=== PATIENT | female | born 1945 | race Caucasian/White ===

== ENCOUNTER 2019-08-26 12:52 | Inpatient (IN) | payer MEDICARE, SELFPAY ==
--- NOTE | ~2019-08-26 | CT_ITS ---
EXAMINATION: CT abdomen pelvis w con DATE: 08/29/2019 12:43 INDICATION: Pancytopenia. Elevated liver function tests. TECHNIQUE: Computed tomography (CT) of the abdomen and pelvis was performed with 100 mL Omnipaque-350 intravenous contrast. Automated exposure control and iterative reconstruction technique were employe d. The dose-length product was 610.65 mGy-cm. COMPARISON: None FINDINGS: Mild atelectasis at the bilateral posterior sulci, right greater than left. Small calcified nodule at the left posterior sulcus consistent with old granulomatous disease. Heart size is normal. Aortic va lve calcification. No pericardial or pleural effusion. Gallbladder is not visualized and likely surgi yahir absent. Liver is normal. No intra or extrahepatic biliary ductal dilation. Spleen, pancreas, bi lateral adrenal glands and right kidney are normal. Status post left nephrectomy with multiple surgic al clips in the left nephrectomy bed. The appendix is not visualized. No pericecal inflammatory ho e to suggest acute appendicitis. Couple surgical clips near the hepatic flexure of the colon. There i s mild to moderate colonic diverticulosis with a sigmoid predominance. There is no adjacent inflammat ory change to suggest diverticulitis. No bowel obstruction. Bladder is normal. The uterus is not iden tified and has likely been surgically resected. Bilateral adnexa are unremarkable. No free intraperit sparks gas or fluid. No pathologically enlarged abdominal or pelvic lymphadenopathy. There is calcifie d atherosclerosis of the aorta and bilateral iliac arteries. Mild lumbar dextrocurvature with moderat e spondylosis. IMPRESSION: 1. Normal liver with no intra-axial hepatic biliary ductal dilation. 2. Postoperative change of prior cholecystectomy, left nephrectomy, hysterectomy and likely appendect erich. 3. Diverticulosis. Reviewed, dictated and finalized at location A. IMPRESSION: 1. Normal liver with no intra-axial hepatic biliary ductal dilation. 2. Postoperative change of prior cholecystectomy, left nephrectomy, hysterectom y and likely appendectomy. 3. Diverticulosis.
[2019-08-26 12:59] VITALS: BP 142/89; PULSE 74; RESP 19; TEMP 36.4; O2SAT 98
--- NOTE | 2019-08-26 13:16 | PC.NURSE ---
pt reports that she cannot taste food or fluids
[2019-08-26 14:25] LABS: Basophils Percent Auto 1.2 % (0.2-1.2); Eosinophils Percent Auto 1.6 % (0-4.4); Hematocrit 28.2 % (37.0-47.0); Hemoglobin 9.5 g/dL (12.0-15.0); Lymphocytes Absolute Auto 1.33 K/mm3 (0.9-3.2); Lymphocytes Percent Auto 52.8 % (18.3-44.2); Mean Corpuscular HGB Conc 33.7 g/dl (32-36); Mean Corpuscular Hemoglobin 33.2 pg (26-34); Mean Corpuscular Volume 98.6 fl (80-100); Mean Platelet Volume 10.1 fl (7.4-10.4); Monocytes Absolute Auto 0.2 K/mm3 (0.1-0.6); Monocytes Percent Auto 7.1 % (2.6-8.5); Neutrophils Absolute Auto 0.9 K/mm3 (1.3-6.7); Neutrophils Percent Auto 37.3 % (45.5-73.1); Platelet Count Result 133 k/mm3 (150-375); Red Blood Count 2.86 M/mm3 (4.2-5.4); Red Cell Distribution Width 14.6 % (11.5-14.5); White Blood Count 2.5 K/mm3 (4.5-10.0)
[2019-08-26 14:36] LABS: Blood Urea Nitrogen 20 mg/dL (7-17); Calcium 9.4 mg/dL (8.4-10.2); Carbon Dioxide 28 mmol/L (22-30); Chloride 102 mmol/L (98-107); Estimated Glomerular Filt Rate 24; Glucose 80 mg/dL (65-105); Potassium 4.1 mmol/L (3.4-5.0); Sodium 137 mmol/L (137-145)
[2019-08-26 14:42] VITALS: BP 148/71; PULSE 50; RESP 16; O2SAT 98
[2019-08-26 14:48] LABS: Creatine Kinase 2941 U/L (30-135)
[2019-08-26 14:53] LABS: Add Urine Microscopic? YES; Appearance Urine Clear (Clear); Bilirubin Urine Negative (Negative); Blood Urine Negative (Negative); Color Urine Yellow (Yellow); Glucose Urine UA Negative (Negative); Ketones Urine Trace mg/dL (Negative); Leukocyte Esterase Ur Trace LEU/UL (Negative); Mucus Urine Rare /lpf; Nitrate Urine Negative (Negative); Protein Urine 1+ mg/dL (Negative); RBC Urine 0-2 /hpf (0-2); Specific Grav Ur 1.027 (1.001-1.035); Squamous Epithelial Cell Urine Few /hpf (Few)
--- NOTE | 2019-08-26 14:53 | ED.RECABL ---
HPI - Recheck/Abnormal Lab/Rx General Chief Complaint: Recheck/Abnormal Lab/Rx <Tamia Del Angel PA-C - Last Filed: 08/26/19 17:33> Stated Complaint: problems with my kidney or thyroid <Tamia Del Angel PA-C - Last Filed: 08/26/19 17:33> Time Seen by Provider: 08/26/19 14:23 <Tamia Del Angel PA-C - Last Filed: 08/26/19 17:33> Source: patient <WILL Stewart Last Filed: 08/26/19 17:33> Mode of arrival: ambulatory <WILL Stewart Last Filed: 08/26/19 17:33> Limitations: no limitations <WILL Stewart Last Filed: 08/26/19 17:33> History of Present Illness HPI narrative: This is a 73 year old female that presents to the ER for thyroid problems . Reports she recently had labs done by her primary care doctor and was told to come to the emergency department for thyroid issues. Currently has no complaints. Denies fever, chest pain, shortness of breath, vomiting, or dysuria. <WILL Stewart Last Filed: 08/26/19 17:33> Related Data Home Medications: Home Medications Medication Instructions Recorded Confirmed atorvastatin 40 mg PO HS 08/26/19 ergocalciferol (vitamin D2) WEEKLY 08/26/19 [Vitamin D2] levothyroxine [Euthyrox] DAILY 08/26/19 <WILL Stewart Last Filed: 08/26/19 17:33> Allergies/Adverse Reactions: Allergies Allergy/AdvReac Type Severity Reaction Status Date / Time No Known Allergies Allergy Verified 08/26/19 13:14 <WILL Stewart Last Filed: 08/26/19 17:33> Review of Systems Review of Systems: Narrative: CONSTITUTIONAL: Denies fever CARDIOVASCULAR: Denies chest pain RESPIRATORY: Denies dyspnea. GASTROINTESTINAL: Denies abdominal pain, nausea, vomiting GENITOURINARY: Denies dysuria or hematuria. <Tamia Del Angel PA-C - Last Filed: 08/26/19 17:33> All systems reviewed & are unremarkable except as noted in HPI and below <Tamia Del Angel PA-C - Last Filed: 08/26/19 17:33> [facility] Past Medical History Medical History: Medical History (Updated 08/26/19 @ 17:33 by Tamia Del Angel PA-C) History of hyperlipidemia History of hypothyroidism <Tamia Del Angel PA-C - Last Filed: 08/26/19 17:33> Social History Social History: Social History Smoking status: Former smoker Smoking end date: 02/14/08 Alcohol intake: never <Tamia Del Angel PA-C - Last Filed: 08/26/19 17:33> Exam Narrative: Exam Narrative: GENERAL: Well-appearing, well-nourished, and in no acute distress. HEAD: Normocephalic, atraumatic. EYES: EOMI. CHEST: Clear to auscultation. No respiratory distress. No wheezes rales or rhonchi HEART: Regular rate and rhythm. No murmur heard. Normal peripheral pulses. ABDOMEN: Soft, nontender, nondistended, normal active bowel sounds. EXTREMITIES: Normal range of motion. No edema. SKIN: Warm, dry, no rash. NEURO: No focal deficits. Alert and oriented x3. PSYCH: Normal mood and affect <Tamia Del Angel PA-C - Last Filed: 08/26/19 17:33> Course WINDOWS SERVER ARCHITECT/PA Physician Supervision For this patient encounter, I reviewed the WINDOWS SERVER ARCHITECT or PA documentation, treatment plan, and medical decision making; and I had [id number] time with this patient. GENERAL: Well-appearing, well-nourished, and in no acute distress. HEAD: Normocephalic, atraumatic. CHEST: Clear to auscultation. No respiratory distress. HEART: Regular rate and rhythm. Normal peripheral pulses. ABDOMEN: Soft, nontender, nondistended. EXTREMITIES: Normal range of motion. No edema. NEURO: Alert and oriented x3. PSYCH: Normal mood and affect. Patient is a pleasant lady is in rhabdomyolysis with renal failure. Will admit to hospital service with hydration. <Mike Rodriguez MD - Last Filed: 08/26/19 19:37> Consultations Consultation #1: Spoke with hospitalist about patient and work-up who accepts admission <Tamia Del Angel PA-C - Last Filed: 08/26/19 17:33> Date: 08/26/19 <Tamia Del Angel PA-C
[2019-08-26] MEDS: SODIUM CHLORIDE 0.9% IV 1,000 ML 999 ML IV CONT (15:35)
[2019-08-26 16:05] LABS: Free T4 Free Thyroxine Reflex 0.34 ng/dL (0.78-2.19)
[2019-08-26 17:34] VITALS: BP 152/92; PULSE 53; RESP 17; O2SAT 99
[2019-08-26 18:51] VITALS: BP 142/78; PULSE 52; RESP 17; O2SAT 97
--- NOTE | 2019-08-26 20:00 | ADMGEN ---
This patient, Octavia Thakkar, was admitted to 3 Medical [address] 345-. Patient/family oriented to hospital policies and general routines including ID bracelet, bed and alarms, visiting hours, pain management, procedures, bathroom and other care routines, personal items, smoking policy, room service/diet, and visiting hours. Valuables list has been completed. Information on how to activate the Rapid Response Team has been discussed. Patient/Family are encouraged to report perceived risks to care and to ask questions if they do not understand what they are told or what they should do.
[2019-08-26 20:15] VITALS: BP 153/78; PULSE 59; RESP 16; TEMP 36.4; O2SAT 97
[2019-08-26 20:16] VITALS: BMI 32.1
[2019-08-26] MEDS: SODIUM CHLORIDE 0.9% IV 1,000 ML 125 ML IV CONT (20:27)
[2019-08-26 21:20] VITALS: PULSE 84; RESP 18; TEMP 36.6; O2SAT 97
--- NOTE | 2019-08-27 03:24 | PM.IMHP ---
H&P: HPI History of Present Illness Chief complaint: MICK,rhabdomyolysis Narrative: Date and time of patient contact: 08/27/2019 Octavia Thakkar is a 73 year old female with a past medical history of chronic kidney disease, left nephrectomy due to renal cell carcinoma, and hypothyroidism who presented to the ER after outpatient labs demonstrated acute kidney injury. The patient reported that she was feeling weak and fatigued. She thought she felt some swelling in her neck. She indicates the upper part of her neck and under her jaw. She stated that this area was tender. She was also having some hoarse voice. These were all symptoms that she had previously when she was 1st diagnosed with hypothyroidism. She had been out of her thyroid medications for 6 months. She had evidently room moved back to the area in the last year so. She wanted to get reestablished with Dr. Do Fletcher. However she was having difficulty with her insurance at the time. She had already run out of her thyroid medications and could not get them refilled. By the time she got her insurance straightened out COVID-19 occurred and she was unable to get into the doctor's office. She had went without her thyroid medications for 6 months. She had a follow-up appointment with her property maintenance supervisor this past week and her property maintenance supervisor refilled her thyroid medications. Patient also reports that she has been having some episodes of lightheadedness. She has not had any nausea or vomiting. She has chronic low appetite. She thinks that her weight has been stable. She has noticed some mild shiv ankle edema. She denies any chest pain or shortness of breath. She has not had any hair loss or skin changes. She has chronic dry skin. She has not been having any constipation. She denies any dysuria or changes in urinary frequency. She reports generalized fatigue but has not noticed any muscle pain or cramping. She has not had any falls or prolonged inactivity. The patient reports that she is a ?gypsy. And does not like to live in 1 place very long. It sounds as if she spends a great deal a time moving back and forth between this area and [place]. Review of Systems Review of Systems: Narrative: 12 systems were reviewed with pertinent positives and negatives per HPI. Except as documented in the HPI, all other systems were reviewed and are negative. [facility] Past Medical History Medical History (Updated 08/27/19 @ 08:24 by Kiana Ramachandran DO) Heart murmur She reports a heart murmur since childhood. Hyperlipidemia Hypothyroidism Renal cell carcinoma Status post left nephrectomy Stage III chronic kidney disease With baseline creatinine around 1.5 Surgical History Surgical History (Updated 08/27/19 @ 03:28 by Kiana Ramachandran DO) History of appendectomy History of hysterectomy History of left nephrectomy 2010 Hx of cholecystectomy Family History Family History Father Acute myocardial infarction Daughter Chronic obstructive pulmonary disease Sibling Acute myocardial infarction Social History Social History (Updated 08/27/19 @ 03:32 by Kiana Ramachandran DO) Social History: Code status: Full code per EMR Smoking packs per day: 0.5 Smoking cigarettes per day: 10.0 Years smoked: 50 Smoking pack-years: 25.00 Smoking status: Former smoker Tobacco type: cigarettes Smoking end date: 02/14/08 Alcohol intake: former Substance use: never Gender identity (if verbalized by the patient): Female Spiritual care concerns: No Meds Home Medications and Allergies Home Medications Medication Instructions Recorded Confirmed Type atorvastatin 40 mg PO HS 08/26/19 08/26/19 History ergocalciferol (vitamin D2) 1,250 mcg PO WEEKLY 08/26/19 08/26/19 History [Vitamin D2] levothyroxine [Euthyrox] 75 mcg PO DAILY 08/26/19 08/26/19 History Allergies Allergy/AdvReac Type
[2019-08-27] MEDS: SODIUM CHLORIDE 0.9% IV 1,000 ML 125 ML IV CONT ×3 (04:26→21:58)
[2019-08-27 05:23] VITALS: BP 153/82; PULSE 55; RESP 16; TEMP 36.7; O2SAT 97
[2019-08-27] MEDS: LEVOTHYROXINE SODIUM 75 MCG TABLET PO (05:31)
[2019-08-27 05:59] LABS: Hematocrit 28.4 % (37.0-47.0); Hemoglobin 9.5 g/dL (12.0-15.0); Mean Corpuscular HGB Conc 33.5 g/dl (32-36); Mean Corpuscular Hemoglobin 33.1 pg (26-34); Platelet Count Result 120 k/mm3 (150-375); Red Blood Count 2.87 M/mm3 (4.2-5.4); Red Cell Distribution Width 14.6 % (11.5-14.5); White Blood Count 2.9 K/mm3 (4.5-10.0)
[2019-08-27 06:11] LABS: Blood Urea Nitrogen 16 mg/dL (7-17); Calcium 8.3 mg/dL (8.4-10.2); Carbon Dioxide 28 mmol/L (22-30); Chloride 107 mmol/L (98-107); Estimated CRCL calculation 27 ml/min; Estimated Glomerular Filt Rate 32; Glucose 75 mg/dL (65-105); Potassium 3.7 mmol/L (3.4-5.0); Sodium 139 mmol/L (137-145)
[2019-08-27 06:21] LABS: Creatine Kinase 2240 U/L (30-135)
[2019-08-27 08:00] VITALS: PULSE 55; RESP 16; O2SAT 97
[2019-08-27 08:36] LABS: Immature Reticulocyte Fraction 13.1 % (3.0-15.9); Reticulocyte Hemoglobin Conten 38.2 pg (28.2-35.7); Reticulocyte Percent 0.93 % (0.7-4.3); Reticulocytes Absolute 0.03 B/L (32.2-175.7)
[2019-08-27 09:04] LABS: Transferrin 212 mg/dL (206-381)
[2019-08-27 09:22] LABS: Iron 123 ug/dL (37-170)
[2019-08-27 09:31] LABS: Percent Iron Saturation 43 % (20-50)
[2019-08-27 09:58] LABS: Folic Acid 11.8 ng/mL (2.76->20)
[2019-08-27 14:22] VITALS: BP 142/74; PULSE 67; RESP 18; TEMP 37.4; O2SAT 97
--- NOTE | 2019-08-27 15:01 | PM.IMPN ---
Progress Note: A&P Assessment and Plan (1) MICK (acute kidney injury): Code(s): N17.9 - Acute kidney failure, unspecified Status: Acute Assessment and Plan: Cr was 2.00 and BUN 20. CK was elevated at 2941. Her MICK is likely secondary to mild rhabdomyolysis. Cr has improved to 1.6 and BUN is 16. Plan to continue IV fluid hydration. Avoid nephrotoxic agents and renally dose medications. Continue to monitor renal function. (2) Rhabdomyolysis: Qualifiers: Rhabdomyolysis type: non-traumatic Qualified Code(s): M62.82 - Rhabdomyolysis Code(s): M62.82 - Rhabdomyolysis Status: Acute Assessment and Plan: CK was elevated at 2941 at presentation. Repeat CK today is 2240. Discontinue atorvastatin. Continue IV fluids. Continue to monitor CK. (3) Hypothyroidism: Code(s): E03.9 - Hypothyroidism, unspecified Status: Acute Assessment and Plan: She reports that she has not taken her levothyroxine for 6 months as she did not have any refills. TSH was elevated at 11.4 and fT4 low at 0.34. Plan to resume home levothyroxine at 75 mcg (her prior home dose) and repeat TSH in 4-6 weeks outpatient with further levothyroxine adjusments per her PCP. (4) Pancytopenia: Code(s): D61.818 - Other pancytopenia Status: Acute Assessment and Plan: WBC was 2, 900, Hb 9.5, Hct 28.2, and platelets 133. She has a hx of renal cell carcinoma s/p left nephrectomy. Absolute reticulocyte count is low at 0.03. Iron studies reveal sufficient iron levels. Vitamin B12 and folate are sufficient. I have reached out to Dr. Canada who will see the patient in consultation. Further recommendations are greatly appreciated. Subjective Date/time seen: 08/27/19 15:01 Interval history: Mrs. Thakkar is a 73 y.o. female who is seen and examined at bedside in follow-up for MICK and rhabdomyolysis. She reports that she is feeling much better today and she is requesting to go home. She reports that her weakness and fatigue have resolved. She is tolerating PO intake well. She denies recent weight change. She denies subjective fever, chills, and night sweats. She denies nausea and vomiting. Her last bowel movement was yesterday. She has no urinary complaints. She denies chest pain and dyspnea. Review of Systems Review of Systems: All systems reviewed & are unremarkable except as noted in HPI and below Exam Narrative: Exam Narrative: General: Pleasant, well-developed, well-nourished 73 y.o. female who appears her stated age lying supine in bed resting. She is in no acute distress. HEENT: Normocephalic and atraumatic. Conjunctivae and lids normal. EOMI. Mucous membranes moist. Dentures present. Posterior pharynx without erythema or exudate. Neck: Supple without lymphadenopathy or masses. Thyromegaly present. Cardiac: Regular rate and rhythm. S1 and S2 normal. 3/6 murmur appreciated at the LSB. Lungs: Effort normal. Lungs clear to auscultation bilaterally. Abdomen: Scars at site of prior appendectomy, cholecystectomy, and left nephrectomy. Bowel sounds normoactive. Abdomen soft, non-tender, and non-distended. Extremities: Scant lower extremity edema. Kelly sign negative. 2+ DP and PT. Neurological: Alert. Exam non-focal to casual conversation. Speech is clear. Skin: Warm and dry. Psychiatric: Judgment and insight intact. Mood pleasant and affect normal. Objective Data Vital Signs Vital Signs: Vital Signs - 24 hr 08/26/19 17:34 08/26/19 18:51 08/26/19 20:15 Temperature 97.6 F Pulse Rate 53 L 52 L 59 L Respiratory Rate 17 17 16 Blood Pressure 152/92 H 142/78 H 153/78 H Pulse Oximetry 99 97 97 08/26/19 21:20 08/27/19 05:23 08/27/19 08:00 Temperature 97.9 F 98.1 F Pulse Rate 84 55 L 55 L Respiratory Rate 18 16 16 Blood Pressure 153/82 H Pulse Oximetry 97 97 97 08/27/19 14:22 Temperature 99.4 F Pulse Rate 67 Respiratory Rate 18 Blood Pressure 142/74 H Pulse Ox
[2019-08-27 22:00] VITALS: BP 158/74; PULSE 58; RESP 14; TEMP 36.9; O2SAT 98
[2019-08-28 05:04] VITALS: BP 153/84; PULSE 61; RESP 14; TEMP 36.3; O2SAT 97
[2019-08-28] MEDS: SODIUM CHLORIDE 0.9% IV 1,000 ML 125 ML IV CONT (05:51)
[2019-08-28] MEDS: LEVOTHYROXINE SODIUM 75 MCG TABLET PO (05:51)
[2019-08-28 06:06] LABS: Basophils Percent Auto 1.3 % (0.2-1.2); Eosinophils Absolute Auto 0.1 K/mm3 (0-0.3); Eosinophils Percent Auto 2.7 % (0-4.4); Hematocrit 29.7 % (37.0-47.0); Hemoglobin 9.8 g/dL (12.0-15.0); Immature Granulocyte Absolute 0.01 K/mm3 (0.00-0.031); Immature Granulocyte Percent A 0.3 % (0-0.5); Immature Platelet Fraction Pct 3.5 % (0.9-11.2); Lymphocytes Percent Auto 56.5 % (18.3-44.2); Mean Corpuscular Hemoglobin 32.8 pg (26-34); Mean Corpuscular Volume 99.3 fl (80-100); Monocytes Absolute Auto 0.2 K/mm3 (0.1-0.6); Neutrophils Absolute Auto 0.9 K/mm3 (1.3-6.7); Neutrophils Percent Auto 31.2 % (45.5-73.1); Platelet Count Result 137 k/mm3 (150-375); Red Blood Count 2.99 M/mm3 (4.2-5.4); Red Cell Distribution Width 14.8 % (11.5-14.5)
[2019-08-28 06:20] LABS: Alanine Aminotransferase 67 U/L (4-35); Albumin Level 3.9 g/dL (3.5-5.1); Alkaline Phosphatase 56 U/L (38-126); Aspartate Amino Transferase 92 U/L (14-36); Bilirubin,Total 0.4 mg/dL (0.2-1.3); Blood Urea Nitrogen 13 mg/dL (7-17); Calcium 8.6 mg/dL (8.4-10.2); Carbon Dioxide 29 mmol/L (22-30); Chloride 108 mmol/L (98-107); Creatine Kinase 1488 U/L (30-135); Estimated CRCL calculation 31 ml/min; Estimated Glomerular Filt Rate 37; Glucose 76 mg/dL (65-105); Magnesium 2.1 mg/dL (1.6-2.3); Potassium 4.1 mmol/L (3.4-5.0); Sodium 140 mmol/L (137-145)
[2019-08-28 14:00] VITALS: BP 145/80; PULSE 67; RESP 18; TEMP 36.8; O2SAT 99
--- NOTE | 2019-08-28 15:05 | PM.IMPN ---
Progress Note: A&P Assessment and Plan (1) MICK (acute kidney injury): Code(s): N17.9 - Acute kidney failure, unspecified Status: Acute Assessment and Plan: Cr was 2.00, BUN 20, and CK elevated at 2941 at admission. Her MICK is likely secondary to mild rhabdomyolysis. Cr has improved to 1.4 and BUN is 13. I suspect she is close to baseline as chart review reports that her baseline Cr is usually close to 1.5. Will continue very gentle IV fluids with reduced rate. Avoid nephrotoxic agents and renally dose medications. Continue to monitor renal function. (2) Rhabdomyolysis: Qualifiers: Rhabdomyolysis type: non-traumatic Qualified Code(s): M62.82 - Rhabdomyolysis Code(s): M62.82 - Rhabdomyolysis Status: Acute Assessment and Plan: CK was elevated at 2941 at presentation. CK is trending down at 1488. Discontinue atorvastatin. Continue gentle IV fluids. Continue to monitor CK. (3) Hypothyroidism: Code(s): E03.9 - Hypothyroidism, unspecified Status: Acute Assessment and Plan: She reports that she has not taken her levothyroxine for 6 months as she did not have any refills. TSH was elevated at 11.4 and fT4 low at 0.34. Plan to resume home levothyroxine at 75 mcg (her prior home dose) and repeat TSH in 4-6 weeks outpatient with further levothyroxine adjusments per her PCP. (4) Pancytopenia: Code(s): D61.818 - Other pancytopenia Status: Acute Assessment and Plan: WBC was 2, 900, Hb 9.5, Hct 28.2, and platelets 133. She has a hx of renal cell carcinoma s/p left nephrectomy. Absolute reticulocyte count is low at 0.03. Iron studies reveal sufficient iron levels. Vitamin B12 and folate are sufficient. I have reached out to Dr. Canada who saw the patient in consultation. Plan for CT abd/pelvis to check for spleen and liver morphology due to LFT elevation. If CT is unremarkable, Dr. Canada recommends bone marrow aspiration and biopsy outpatient. Subjective Date/time seen: 08/28/19 15:05 Interval history: Mrs. Thakkar is a 73 y.o. female who is seen and examined at bedside in follow-up for MICK and rhabdomyolysis. No acute events were reported overnight. She reports that she has been up walking in the room without pain or weakness. She is tolerating PO intake well. Her fatigue has resolved. She denies nausea, vomiting, and abdominal pain. She has no urinary complaints. She denies chest pain and dyspnea. She denies calf tenderness. Review of Systems Review of Systems: All systems reviewed & are unremarkable except as noted in HPI and below Exam Narrative: Exam Narrative: General: Pleasant, well-developed, well-nourished 73 y.o. female lying supine in bed resting and in no acute distress. HEENT: Normocephalic and atraumatic. Conjunctivae and lids normal. EOMI. Mucous membranes moist. Dentures present. Posterior pharynx without erythema or exudate. Neck: Supple without lymphadenopathy or masses. Thyromegaly present. Cardiac: Regular rate and rhythm. S1 and S2 normal. 3/6 murmur appreciated at the LSB. Lungs: Effort normal. Lungs clear to auscultation bilaterally. Abdomen: Bowel sounds are normoactive. Abdomen is soft, non-tender, and non-distended. Extremities: No lower extremity edema or cyanosis bilaterally. Kelly sign negative. Neurological: Alert. Exam non-focal to casual conversation. Speech clear. Skin: Warm and dry. Psychiatric: Judgment and insight intact. Mood pleasant and affect appropriate. Objective Data Vital Signs Vital Signs: Vital Signs - 24 hr 08/27/19 22:00 08/28/19 05:04 08/28/19 14:00 Temperature 98.5 F 97.4 F L 98.3 F Pulse Rate 58 L 61 67 Respiratory Rate 14 14 18 Blood Pressure 158/74 H 153/84 H 145/80 H Pulse Oximetry 98 97 99 Intake/Output Intake/Output: Intake & Output 08/25/19 08/26/19 08/27/19 08/28/19 23:59 23:59 23:59 23:59 Intake Total 1000 5640 1660 Output Total 200 2600 1100 Balance
--- NOTE | 2019-08-28 17:33 | CONS_ITS ---
DATE OF CONSULTATION: 08/28/2019 REASON FOR CONSULTATION: Pancytopenia. HISTORY OF PRESENTING ILLNESS: This is a pleasant 73-year-old female with history of renal cell carcinoma, status post left-sided nephrectomy done in 2011. The patient came into the hospital with complaint of tiredness and fatigue. She also has some swelling in the neck. She denies any bleeding and bruising including melena and hematochezia. She denies any fever, chills, and night sweats. She denies any history of pancytopenia previously. She did not receive any chemotherapy and radiation therapy. REVIEW OF SYSTEMS: 12-point review of system was reviewed and as per HPI, otherwise negative. PAST MEDICAL HISTORY: Hyperlipidemia, renal cell carcinoma, status post left-sided nephrectomy in 2011, chronic kidney stage 3 disease, hyperlipidemia, heart murmur. PAST SURGICAL HISTORY: Left-sided nephrectomy, cholecystectomy, appendectomy, hysterectomy. FAMILY HISTORY: Noncontributory. SOCIAL HISTORY: The patient is a former smoker and quit in 2008. She also quit drinking. HOME MEDICATIONS: Reviewed. ALLERGIES: REVIEWED. PHYSICAL EXAMINATION: GENERAL: This patient is a well-developed, well-nourished female, in no apparent distress. Alert and oriented. Vital signs per nursing note. HEENT: Normocephalic, atraumatic. Clear oropharynx. LUNGS: Clear to auscultation bilaterally. CARDIOVASCULAR: Regular rate and rhythm. No murmurs. ABDOMEN: Soft, nontender, nondistended. Bowel sounds are positive in all 4 quadrants. No hepatosplenomegaly. EXTREMITIES: No edema. NEUROLOGIC: Grossly intact. LABORATORY DATA: WBC 3.0, hemoglobin 9.8, MCV 99.3, platelet 137,000, neutrophils 31%, lymphocytes 56%. Creatinine 1.4. Iron 123, iron saturation 43%, ferritin is 282, AST 92, ALT 67, vitamin B12 is 414. ASSESSMENT AND PLAN: Pancytopenia. This patient has a history of left-sided renal cell carcinoma, status post nephrectomy in 2011. She came into the hospital with tiredness and fatigue. She also developed acute kidney failure, likely secondary to mild rhabdomyolysis. I have reviewed the labs that has been done with the patient and discussed this with the hospitalist team. She has normal iron studies and vitamin B12 level. Her anemia can be secondary to renal insufficiency. Low platelet count and WBC values count can be explained by possibility of bone marrow disorder like myelodysplasia versus liver disease and splenomegaly, as liver enzymes are elevated. I will order CT abdomen and pelvis to check for liver and spleen morphology. If the CT scan comes back unremarkable, then we will recommend bone marrow aspiration and biopsy. The patient will follow up with us as an outpatient for continuation of workup and management. I would like to thanks for allowing us to see this patient in the consultation. EWA Stevan ABDUL M.D. OFFICER CAPTAIN OFFICER CAPTAIN D Shad [place]: [place]
[2019-08-28] MEDS: SODIUM CHLORIDE 0.9% IV 1,000 ML 75 ML IV CONT (19:26)
[2019-08-28 20:35] VITALS: BP 151/80; PULSE 63; RESP 14; TEMP 36.8; O2SAT 97
[2019-08-29 05:22] VITALS: BP 150/79; PULSE 59; RESP 14; TEMP 36.3; O2SAT 98
[2019-08-29] MEDS: LEVOTHYROXINE SODIUM 75 MCG TABLET PO (05:28)
[2019-08-29 06:04] LABS: Basophils Absolute Auto 0.1 K/mm3 (0.0-0.1); Basophils Percent Auto 1.5 % (0.2-1.2); Eosinophils Absolute Auto 0.1 K/mm3 (0-0.3); Eosinophils Percent Auto 2.1 % (0-4.4); Hematocrit 29.3 % (37.0-47.0); Hemoglobin 9.8 g/dL (12.0-15.0); Immature Granulocyte Absolute 0.01 K/mm3 (0.00-0.031); Immature Granulocyte Percent A 0.3 % (0-0.5); Immature Platelet Fraction Pct 2.9 % (0.9-11.2); Lymphocytes Absolute Auto 1.56 K/mm3 (0.9-3.2); Mean Corpuscular HGB Conc 33.4 g/dl (32-36); Mean Corpuscular Hemoglobin 33.6 pg (26-34); Mean Corpuscular Volume 100.3 fl (80-100); Mean Platelet Volume 10.6 fl (7.4-10.4); Monocytes Absolute Auto 0.2 K/mm3 (0.1-0.6); Monocytes Percent Auto 6.9 % (2.6-8.5); Neutrophils Absolute Auto 1.4 K/mm3 (1.3-6.7); Neutrophils Percent Auto 42.2 % (45.5-73.1); Platelet Count Result 151 k/mm3 (150-375); Red Blood Count 2.92 M/mm3 (4.2-5.4); Red Cell Distribution Width 14.7 % (11.5-14.5); White Blood Count 3.3 K/mm3 (4.5-10.0)
[2019-08-29 06:19] LABS: Alanine Aminotransferase 57 U/L (4-35); Alkaline Phosphatase 54 U/L (38-126); Aspartate Amino Transferase 79 U/L (14-36); Bilirubin,Total 0.4 mg/dL (0.2-1.3); Blood Urea Nitrogen 18 mg/dL (7-17); Calcium 9.2 mg/dL (8.4-10.2); Carbon Dioxide 28 mmol/L (22-30); Chloride 106 mmol/L (98-107); Creatine Kinase 1293 U/L (30-135); Estimated CRCL calculation 31 ml/min; Estimated Glomerular Filt Rate 37; Glucose 80 mg/dL (65-105); Potassium 3.9 mmol/L (3.4-5.0); Sodium 140 mmol/L (137-145)
[2019-08-29] MEDS: SODIUM CHLORIDE 0.9% IV 1,000 ML 75 ML IV CONT ×2 (08:21→20:59)
[2019-08-29 14:00] VITALS: BP 145/75; PULSE 65; RESP 14; TEMP 36.4; O2SAT 99
--- NOTE | 2019-08-29 16:49 | PM.IMPN ---
Progress Note: A&P Assessment and Plan (1) MICK (acute kidney injury): Code(s): N17.9 - Acute kidney failure, unspecified Status: Acute Assessment and Plan: Cr was 2.00, BUN 20, and CK elevated at 2941 at admission. Her MICK is likely secondary to mild rhabdomyolysis. Cr has improved from admission and is 1.4. I suspect she is close to baseline as chart review reports that her baseline Cr is usually close to 1.5. Will continue very gentle IV fluids. Avoid nephrotoxic agents and renally dose medications. Continue to monitor renal function. (2) Rhabdomyolysis: Qualifiers: Rhabdomyolysis type: non-traumatic Qualified Code(s): M62.82 - Rhabdomyolysis Code(s): M62.82 - Rhabdomyolysis Status: Acute Assessment and Plan: CK was elevated at 2941 at presentation. CK is trending down at 1293. Discontinue atorvastatin. Continue gentle IV fluids. Continue to monitor CK. (3) Hypothyroidism: Code(s): E03.9 - Hypothyroidism, unspecified Status: Acute Assessment and Plan: She reports that she has not taken her levothyroxine for 6 months as she did not have any refills. TSH was elevated at 11.4 and fT4 low at 0.34. Plan to resume home levothyroxine at 75 mcg (her prior home dose) and repeat TSH in 4-6 weeks outpatient with further levothyroxine adjusments per her PCP. (4) Pancytopenia: Code(s): D61.818 - Other pancytopenia Status: Acute Assessment and Plan: WBC was 2, 900, Hb 9.5, Hct 28.2, and platelets 133. She has a hx of renal cell carcinoma s/p left nephrectomy. Absolute reticulocyte count is low at 0.03. Iron studies reveal sufficient iron levels. Vitamin B12 and folate are sufficient. I have reached out to Dr. Canada who saw the patient in consultation. CT abd/pelvis revealed no evidence of spleen or liver morphology. AST and ALT elevation is likely secondary to rhabdomyolysis. Dr. Canada recommends bone marrow aspiration and biopsy outpatient. (5) Transaminitis: Code(s): R74.0 - Nonspecific elevation of levels of transaminase and lactic acid dehydrogenase [LDH] Status: Acute Assessment and Plan: Likely secondary to transaminitis. CT abd/pelvis revealed no evidence of liver pathology. Will order hepatitis panel. Subjective Date/time seen: 08/29/19 16:49 Interval history: Mrs. Thakkar is a 73 y.o. female who is seen and examined at bedside in follow-up for MICK and rhabdomyolysis. She was seen in consultation by oncology for pancytopenia and outpatient bone marrow biopsy was recommended. She has no complaints today and feels well. She hopes to go home soon. She denies weakness, muscle aches, and fatigue. She has no other complaints. Review of Systems Review of Systems: All systems reviewed & are unremarkable except as noted in HPI and below Exam Narrative: Exam Narrative: General: Pleasant, well-developed, and well-nourished 73 y.o. female sitting at the side of the bed in no acute distress. HEENT: Normocephalic and atraumatic. Conjunctivae pink. EOMI. Mucous membranes moist. Neck: Supple without lymphadenopathy or masses. Thyromegaly present to palpation. Cardiac: Regular rate and rhythm. S1 and S2 normal. 3/6 murmur appreciated at the LSB. Lungs: Effort normal. Lungs clear to auscultation bilaterally without wheezing, rhonchi, or rales. Abdomen: Bowel sounds are normoactive. Abdomen is soft, non-tender, and non-distended. Extremities: No lower extremity edema or cyanosis. No calf tenderness. Neurological: Alert. Exam non-focal to casual conversation. Speech clear. Skin: Warm and dry. Skin is dry. She has telangiectasia on the LLE. Psychiatric: Judgment and insight intact. Mood pleasant and affect appropriate. Objective Data Vital Signs Vital Signs: Vital Signs - 24 hr 08/28/19 20:35 08/29/19 05:22 08/29/19 14:00 Temperature 98.2 F 97.3 F L 97.5 F L Pulse Rate 63 59 L 65 Respiratory Rate 14
--- NOTE | 2019-08-29 18:14 | P.PNONC_ITS ---
Progress Note: A/P - Additional Plan Pancytopenia. CT abdomen and pelvis was performed today that showed normal liver and normal spleen. It is possible that she may have underlying bone marrow disorder. Bone marrow biopsy would be indicated. Patient does not want to wait for bone marrow biopsy. We will see her as an outpatient and recommend bone marrow biopsy as an outpatient. She has been provided with my office information. History of renal cell carcinoma. Status post nephrectomy. - Time Spent With Patient Total time spent is greater than 50% in coordination of care (as documented) at patient's floor/unit and/or counseling patient: 15 - 25 minutes Subjective Interval history: Pancytopenia History of renal cell carcinoma status post nephrectomy Renal insufficiency Review of Systems - Review of Systems Patient is feeling fine and denies any bleeding and bruising. He has mild tiredness and fatigue. She denies any fevers and chills. Denies any abdominal pain. No other new complaints. Exam Vital signs: Temp Pulse Resp BP Pulse Ox 36.4 C L 65 14 145/75 H 99 08/29/19 14:00 08/29/19 14:00 08/29/19 14:00 08/29/19 14:00 08/29/19 14:00 Narrative: Lungs are clear to auscultation bilaterally Cardiovascular regular rate rhythm no murmurs Abdomen soft nontender nondistended bowel sounds are positive Extremities no edema PN: Objective Data - Labs CBC & Chem 7: 08/29/19 05:42 08/29/19 05:42 Labs: Laboratory Results - last 24 hr 08/29/19 08/29/19 05:42 05:42 WBC 3.3 L RBC 2.92 L Hgb 9.8 L Hct 29.3 L MCV 100.3 H MCH 33.6 MCHC 33.4 RDW 14.7 H Plt Count 151 MPV 10.6 H Immature Gran % (Auto) 0.3 Neut % (Auto) 42.2 L Lymph % (Auto) 47.0 H [place] % (Auto) 6.9 Eos % (Auto) 2.1 Baso % (Auto) 1.5 H Lymph # (Auto) 1.56 [place] # (Auto) 0.2 Eos # (Auto) 0.1 Baso # (Auto) 0.1 Abs Immat Gran (auto) 0.01 Absolute Neuts (auto) 1.4 Absolute Nucleated RBC 0.0 Nucleated RBC % 0.0 % Immature Plt Fraction 2.9 Sodium 140 Potassium 3.9 Chloride 106 Carbon Dioxide 28 BUN 18 H Creatinine 1.40 H Estim Creat Clear Calc 31 Estimated GFR 37 L Glucose 80 Calcium 9.2 Total Bilirubin 0.4 AST 79 H ALT 57 H Alkaline Phosphatase 54 Total Creatine Kinase 1293 H Total Protein 7.0 Albumin 4.0
--- NOTE | 2019-08-29 18:50 | PC.NURSE ---
I, Delaney Gonzalez RN, have reviewed all documentation completed by Lucia Guzman RN. Documentation has been completed appropriately and in its entirety.
[2019-08-29 20:49] VITALS: BP 156/82; PULSE 59; RESP 16; TEMP 36.7; O2SAT 98
[2019-08-29] MEDS: ENOXAPARIN 40 MG/0.4 ML SYRINGE SUB-Q (22:19)
--- NOTE | 2019-08-30 | ECHO_ITS ---
Patient Info Name: Octavia Thakkar Age: 73 years : 1945 Gender: Female Ht: 62 in Wt: 175 lbs BSA: 1.90 m2 HR: 56 bpm BP: 150 / 78 mmHg Heart Rhythm: Sinus Rhythm Technical Quality: Good Exam Date: 08/30/2019 2:36 PM Exam Location: [facility] Exam Room: [facility] Patient Status: Inpatient Admit Date: 08/27/2019 Staff Ordering Physician: Mounika Gaming PA-C Salt Manager: Shirley Fuentes RDCS Attending Provider: Mounika Gaming PA-C Referring Physician: Amberly KUO; Exam Type: CA echo doppler color flow Study Info Indications - MURMUR Complete two-dimensional, color flow and Doppler transthoracic echocardiogram is performed. Summary 1. There is mild concentric increased left ventricular wall thickness. 2. Left ventricular systolic function is normal, estimated at 60-65%. 3. There is moderate to severe aortic valve stenosis with a peak velocity of 283 cm/s, mean gradient of 18 mmHg, and aortic valve area of 1.2 cm2. Left Ventricle Left ventricular chamber dimension is normal. Left ventricular systolic function is normal, estimated at 60-65%. There is mild concentric increased left ventricular wall thickness. The left ventricular diastolic function is grade I diastolic dysfunction. Right Ventricle Right ventricular chamber dimension is normal. Left Atria Left atrial chamber dimension is mildly enlarged. Right Atria Right atrial chamber dimension is normal. Aortic Valve The aortic valve is trileaflet. There is moderate to severe aortic valve stenosis with a peak velocity of 283 cm/s, mean gradient of 18 mmHg, and aortic valve area of 1.2 cm2. There is trace aortic valve regurgitation. Pulmonic Valve The pulmonic valve is not well visualized. Mitral Valve The mitral valve has normal leaflets. There is trace mitral valve regurgitation. Tricuspid Valve The tricuspid valve leaflets are normal. Pericardium/Pleural The pericardium appears normal. Aorta The aortic root size at the sinus of Valsalva is normal. Left Ventricular Outflow Tract Name Value Normal LVOT 2D LVOT Diameter 2.0 cm LVOT Doppler LVOT Peak Gradient 4 mmHg LVOT Mean Gradient 3 mmHg LVOT VTI 25 cm LVOT VTI/AV VTI Ratio 0.4 LVOT Stroke Volume 81 ml LVOT CO 15.1 l/min LVOT CI 8.0 l/min/m2 Pulmonic Valve Name Value Normal PV Doppler PV Peak Gradient 2 mmHg PV Regurgitation Doppler NM Peak End Diastolic Velocity 97 cm/s Mitral Valve
[2019-08-30] MEDS: LEVOTHYROXINE SODIUM 75 MCG TABLET PO (05:45)
[2019-08-30 05:58] VITALS: BP 150/78; PULSE 56; RESP 16; TEMP 36.4; O2SAT 99
[2019-08-30 06:20] LABS: Alanine Aminotransferase 54 U/L (4-35); Alkaline Phosphatase 56 U/L (38-126); Aspartate Amino Transferase 74 U/L (14-36); Bilirubin,Total 0.4 mg/dL (0.2-1.3); Blood Urea Nitrogen 18 mg/dL (7-17); Calcium 9.3 mg/dL (8.4-10.2); Carbon Dioxide 29 mmol/L (22-30); Chloride 104 mmol/L (98-107); Creatine Kinase 1144 U/L (30-135); Estimated CRCL calculation 33 ml/min; Estimated Glomerular Filt Rate 40; Glucose 80 mg/dL (65-105); Potassium 3.6 mmol/L (3.4-5.0); Sodium 138 mmol/L (137-145)
[2019-08-30 08:31] LABS: Hepatitis B Surface Antigen Negative (Negative)
[2019-08-30 08:37] LABS: HAV RESULT Negative (Negative); Hepatitis B Core IgM Result Negative (Negative)
[2019-08-30 08:49] LABS: Hepatitis C Virus Antibody Negative (Negative)
[2019-08-30] MEDS: SODIUM CHLORIDE 0.9% IV 1,000 ML 75 ML IV CONT (10:49)
--- NOTE | 2019-08-30 13:53 | PM.IMPN ---
Progress Note: A&P Assessment and Plan (1) MICK (acute kidney injury): Code(s): N17.9 - Acute kidney failure, unspecified Status: Acute Assessment and Plan: Cr was 2.00, BUN 20, and CK elevated at 2941 at admission. Her MICK is likely secondary to mild rhabdomyolysis. Cr has improved from admission and is 1.3 today with GFR 40. I suspect she is close to baseline. Labs available from 06/16/17 reveal Cr of 1.42 and GFR 37. Will continue very gentle IV fluids. Avoid nephrotoxic agents and renally dose medications. Continue to monitor renal function. (2) Rhabdomyolysis: Qualifiers: Rhabdomyolysis type: non-traumatic Qualified Code(s): M62.82 - Rhabdomyolysis Code(s): M62.82 - Rhabdomyolysis Status: Acute Assessment and Plan: CK was elevated at 2941 at presentation. CK is trending down at 1144 today. Discontinue atorvastatin. LFTs are improving. Continue gentle IV fluids. Continue to monitor CK. (3) Hypothyroidism: Code(s): E03.9 - Hypothyroidism, unspecified Status: Acute Assessment and Plan: She reports that she has not taken her levothyroxine for 6 months as she did not have any refills. TSH was elevated at 11.4 and fT4 low at 0.34. Plan to resume home levothyroxine at 75 mcg (her prior home dose) and repeat TSH in 4-6 weeks outpatient with further levothyroxine adjusments per her PCP. (4) Pancytopenia: Code(s): D61.818 - Other pancytopenia Status: Acute Assessment and Plan: CBC at presentation revealed pancytopenia with WBC 2.5, RBC 286, Hb 9.5, Hct 28.2, platelets 133. She has a hx of renal cell carcinoma s/p left nephrectomy. Absolute reticulocyte count is low at 0.03. Iron studies reveal sufficient iron levels. Vitamin B12 and folate are sufficient. I have reached out to Dr. Canada who saw the patient in consultation. CT abd/pelvis revealed no evidence of spleen or liver morphology. AST and ALT elevation is likely secondary to rhabdomyolysis. Dr. Canada recommends bone marrow aspiration and biopsy outpatient. (5) Transaminitis: Code(s): R74.0 - Nonspecific elevation of levels of transaminase and lactic acid dehydrogenase [LDH] Status: Acute Assessment and Plan: Likely secondary to transaminitis. CT abd/pelvis revealed no evidence of liver pathology. Hepatitis panel was negative. (6) Heart murmur: Code(s): R01.1 - Cardiac murmur, unspecified Status: Acute Assessment and Plan: The patient reports a murmur since childhood but is not sure when her last echocardiogram was for evaluation. Will order echo for further evaluation. Subjective Date/time seen: 08/30/19 13:53 Interval history: Mrs. Thakkar is a 73 y.o. female who is seen and examined at bedside in follow-up for MICK and rhabdomyolysis. She was seen in consultation by oncology for pancytopenia and outpatient bone marrow biopsy was recommended. She reports that she ate a large lunch and is tired after eating. She has no other complaints at this time including no myalgias or weakness. Review of Systems Review of Systems: All systems reviewed & are unremarkable except as noted in HPI and below Exam Narrative: Exam Narrative: General: Pleasant, well-developed, and well-nourished 73 y.o. lying supine in bed resting in no acute distress. HEENT: Normocephalic and atraumatic. Conjunctivae normal. Mucous membranes moist. Neck: Supple, thyromegaly present without lymphadenopathy or masses. Cardiac: Regular rate and rhythm. S1 and S2 normal. 3/6 murmur appreciated at the LSB. Lungs: Effort normal. Lungs clear to auscultation bilaterally without wheezing, rhonchi, or rales. Abdomen: Bowel sounds are normoactive. Abdomen is soft, non-tender, and non-distended. Extremities: No lower extremity edema or cyanosis. Negative coral sign. Pedal pulses 2+ bilaterally. Neurological: Alert. Exam non-focal to casual conversation. Speech clear. S
[2019-08-30 14:00] VITALS: BP 142/74; PULSE 59; RESP 18; TEMP 35.8; O2SAT 97
[2019-08-30 20:51] VITALS: BP 150/79; PULSE 55; RESP 12; TEMP 36.3; O2SAT 98
[2019-08-30] MEDS: ENOXAPARIN 40 MG/0.4 ML SYRINGE SUB-Q (22:04)
[2019-08-31] MEDS: SODIUM CHLORIDE 0.9% IV 1,000 ML 75 ML IV CONT (00:57)
[2019-08-31 05:21] VITALS: BP 157/79; PULSE 59; RESP 12; TEMP 36.2; O2SAT 100
[2019-08-31] MEDS: LEVOTHYROXINE SODIUM 75 MCG TABLET PO (05:44)
[2019-08-31 06:10] LABS: Basophils Percent Auto 1.3 % (0.2-1.2); Eosinophils Absolute Auto 0.1 K/mm3 (0-0.3); Eosinophils Percent Auto 2.9 % (0-4.4); Hematocrit 28.4 % (37.0-47.0); Hemoglobin 9.5 g/dL (12.0-15.0); Immature Granulocyte Absolute 0.01 K/mm3 (0.00-0.031); Immature Granulocyte Percent A 0.3 % (0-0.5); Lymphocytes Absolute Auto 1.44 K/mm3 (0.9-3.2); Lymphocytes Percent Auto 45.7 % (18.3-44.2); Mean Corpuscular HGB Conc 33.5 g/dl (32-36); Mean Corpuscular Hemoglobin 33.3 pg (26-34); Mean Corpuscular Volume 99.6 fl (80-100); Mean Platelet Volume 10.6 fl (7.4-10.4); Monocytes Absolute Auto 0.2 K/mm3 (0.1-0.6); Neutrophils Absolute Auto 1.4 K/mm3 (1.3-6.7); Neutrophils Percent Auto 42.8 % (45.5-73.1); Platelet Count Result 150 k/mm3 (150-375); Red Blood Count 2.85 M/mm3 (4.2-5.4); Red Cell Distribution Width 14.5 % (11.5-14.5); White Blood Count 3.2 K/mm3 (4.5-10.0)
[2019-08-31 06:29] LABS: Alanine Aminotransferase 58 U/L (4-35); Alkaline Phosphatase 58 U/L (38-126); Aspartate Amino Transferase 73 U/L (14-36); Bilirubin,Total 0.4 mg/dL (0.2-1.3); Blood Urea Nitrogen 20 mg/dL (7-17); Carbon Dioxide 30 mmol/L (22-30); Chloride 105 mmol/L (98-107); Creatine Kinase 1008 U/L (30-135); Estimated CRCL calculation 31 ml/min; Estimated Glomerular Filt Rate 37; Glucose 82 mg/dL (65-105); Potassium 3.7 mmol/L (3.4-5.0); Sodium 140 mmol/L (137-145)
--- NOTE | 2019-08-31 12:27 | PM.CNCAR ---
Assessment and Plan Additional Plan Moderate , asymptomatic, and no signs of heart failure, plan f/u TTE in 6 months and f/u with cardiology in clinic History of Present Illness History of Present Illness Consult date/time: 08/31/19 12:27 Consult reason: Other (abnormal ECHO) Reason For Visit: MICK,rhabdomyolysis Narrative: Patient presented with MICK and abnormal lab, she has been feeling fatigue and generalzied weakness recently but no chest pain SOB or dizziness. She had HX of renal cancer in past. She had no Hx of heart disease. She had prior murmur but doesn't remember more details about other work up done in past. Review of Systems Review of Systems: All systems reviewed & are unremarkable except as noted in HPI and below PMFSH Past Medical History Medical History (Updated 08/30/19 @ 13:58 by Mounika Gaming PA-C) Heart murmur She reports a heart murmur since childhood. Hyperlipidemia Hypothyroidism Renal cell carcinoma Status post left nephrectomy Stage III chronic kidney disease With baseline creatinine around 1.5 Surgical History Surgical History (Updated 08/29/19 @ 18:16 by Noah Canada MD) History of appendectomy History of hysterectomy History of left nephrectomy 2010 Hx of cholecystectomy Family History Family History Father Acute myocardial infarction Daughter Chronic obstructive pulmonary disease Sibling Acute myocardial infarction Social History Social History (Updated 08/27/19 @ 03:32 by Kiana Ramachandran DO) Social History: Code status: Full code per EMR Smoking packs per day: 0.5 Smoking cigarettes per day: 10.0 Years smoked: 50 Smoking pack-years: 25.00 Smoking status: Former smoker Tobacco type: cigarettes Smoking end date: 02/14/08 Alcohol intake: former Substance use: never Gender identity (if verbalized by the patient): Female Spiritual care concerns: No Meds Home Medications and Allergies Home Medications Medication Instructions Recorded Confirmed Type atorvastatin 40 mg PO HS 08/26/19 08/26/19 History ergocalciferol (vitamin D2) 1,250 mcg PO WEEKLY 08/26/19 08/26/19 History [Vitamin D2] levothyroxine [Euthyrox] 75 mcg PO DAILY 08/26/19 08/26/19 History Allergies Allergy/AdvReac Type Severity Reaction Status Date / Time No Known Allergies Allergy Verified 08/26/19 13:14 Vital Signs Vital Signs - 24 hr 08/30/19 14:00 08/30/19 20:51 08/31/19 05:21 Temperature 35.8 C L 36.3 C L 36.2 C L Pulse Rate 59 L 55 L 59 L Respiratory Rate 18 12 12 Blood Pressure 142/74 H 150/79 H 157/79 H Pulse Oximetry 97 98 100 Exam Const: General: comfortable and no acute distress Other: Able to lie flat HENMT: General nose exam: Normal nares present and no epistaxis Mouth: Yes moist mucous membranes Eyes: Sclera: sclerae normal Pupils: Equal, round and reactive pupils present Neck: Neck: supple and no JVD Carotids: no bruits Resp: Auscultation: clear to auscultation bilaterally and lung sounds not diminished Other: No chest wall tenderness Cardio: Rate: regular rate Rhythm: regular rhythm Heart sounds: no gallops, Murmur heart sound present (ESM at base) and no rubs GI: GI Palp: Yes Soft to palpation and No Tenderness to palpation present (GI) Auscultation: normal bowel sounds Skin: General skin exam: normal color, rashes and/or lesions noted and no erythema Other: Warm Neuro: Cranial nerves: Yes Equal, round and reactive pupils present Speech: normal speech Other: No obvious focal deficit or facial asymmetry Extrem: General: no edema Other: Normal capillary refills Intact distal pulses. Results Labs and Meds Result diagrams: 08/31/19 05:42 08/31/19 05:42 Lab results: Cardiac Enzymes 08/31/19 Range/Units 05:42 AST 73 H (14-36) U/L CBC 08/31/19 Range/Units 05:42 WBC 3.2 L (4.5-
[2019-08-31 14:00] VITALS: BP 149/82; PULSE 58; RESP 18; TEMP 37.7; O2SAT 98
[2019-08-31] MEDS: SODIUM CHLORIDE 0.9% IV 1,000 ML 100 ML IV CONT (14:08)
--- NOTE | 2019-08-31 15:28 | PM.IMPN ---
Progress Note: A&P Assessment and Plan (1) MICK (acute kidney injury): Code(s): N17.9 - Acute kidney failure, unspecified Status: Acute Assessment and Plan: Cr was 2.00, BUN 20, and CK elevated at 2941 at admission. Her MICK is likely secondary to rhabdomyolysis. Cr has improved from admission and is 1.4 today and BUN 20. I suspect she is close to baseline. 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 Labs available from 06/16/17 reveal Cr of 1.42 and GFR 37. Avoid nephrotoxic agents and renally dose medications. Continue to monitor renal function. (2) Rhabdomyolysis: Qualifiers: Rhabdomyolysis type: non-traumatic Qualified Code(s): M62.82 - Rhabdomyolysis Code(s): M62.82 - Rhabdomyolysis Status: Acute Assessment and Plan: CK was elevated at 2941 at presentation. CK is trending down slowly and is 1008 today. Atorvastatin was discontinued. LFTs are slowly improving. Continue gentle IV fluids. Continue to monitor CK. (3) Hypothyroidism: Code(s): E03.9 - Hypothyroidism, unspecified Status: Acute Assessment and Plan: She reports that she has not taken her levothyroxine for 6 months as she did not have any refills. TSH was elevated at 11.4 and fT4 low at 0.34. Plan to resume home levothyroxine at 75 mcg (her prior home dose) and repeat TSH in 4-6 weeks outpatient with further levothyroxine adjusments per her PCP. (4) Pancytopenia: Code(s): D61.818 - Other pancytopenia Status: Acute Assessment and Plan: CBC at presentation revealed pancytopenia with WBC 2.5, RBC 286, Hb 9.5, Hct 28.2, platelets 133. She has a hx of renal cell carcinoma s/p left nephrectomy. Absolute reticulocyte count is low at 0.03. Iron studies reveal sufficient iron levels. Vitamin B12 and folate are sufficient. I have reached out to Dr. Canada who saw the patient in consultation. CT abd/pelvis revealed no evidence of spleen or liver morphology. AST and ALT elevation is likely secondary to rhabdomyolysis. Dr. Canada recommends bone marrow aspiration and biopsy outpatient. (5) Transaminitis: Code(s): R74.0 - Nonspecific elevation of levels of transaminase and lactic acid dehydrogenase [LDH] Status: Acute Assessment and Plan: Likely secondary to rhabdomyolysis. CT abd/pelvis revealed no evidence of liver pathology. Hepatitis panel was negative. LFTs are slowly trending down. (6) Aortic stenosis: Code(s): I35.0 - Nonrheumatic aortic (valve) stenosis Status: Acute Assessment and Plan: The patient had a systolic murmur. Echocardiogram was performed and revealed moderate to severe aortic valve stenosis with a peak velocity of 283 cm/s, mean gradient of 18 mmHg, and aortic valve area of 1.2 cm2. Cardiology was consulted since she is not established with cardiology and will need follow-up echo monitoring. Appreciate cardiology recommendations. She will need TTE in 6 months and f/u with cardiology in clinic. Subjective Date/time seen: 08/31/19 15:28 Interval history: Mrs. Thakkar is a 73 y.o. female who is seen and examined at bedside in follow-up for MICK and rhabdomyolysis. She is resting after eating lunch. Her appetite is good. She denies chest pain, dyspnea, and palpitations. She denies nausea and vomiting. She denies urinary complaints. She had a regular bowel movement yesterday. She denies headaches, lightheadedness, dizziness. She denies weakness and myalgias. Review of Systems Review of Systems: All systems reviewed & are unremarkable except as noted in HPI and below Exam Narrative: Exam Narrative: General: Very pleasant 73 y.o. female lying supine in bed resting. She is in no acute distress. HEENT: Normocephalic and atraumatic. EOMI. Oral mucosa moist. Neck: Supple. No lymphadenopathy or masses. +Thyromegaly Cardiac: Regular rate and rhythm. S1 and S2 normal. 3/6 murmur appreciated at the right
[2019-08-31 17:15] VITALS: TEMP 37.1
[2019-08-31] MEDS: ENOXAPARIN 40 MG/0.4 ML SYRINGE SUB-Q (20:36)
[2019-08-31 20:54] VITALS: BP 156/80; PULSE 62; RESP 16; TEMP 36.7; O2SAT 97
[2019-09-01] MEDS: SODIUM CHLORIDE 0.9% IV 1,000 ML 100 ML IV CONT ×2 (00:02→12:09)
[2019-09-01 05:39] VITALS: BP 149/79; PULSE 61; RESP 14; TEMP 36.5; O2SAT 97
[2019-09-01 05:54] LABS: Alanine Aminotransferase 50 U/L (4-35); Albumin Level 4.1 g/dL (3.5-5.1); Alkaline Phosphatase 52 U/L (38-126); Aspartate Amino Transferase 60 U/L (14-36); Bilirubin,Total 0.5 mg/dL (0.2-1.3); Blood Urea Nitrogen 21 mg/dL (7-17); Calcium 8.8 mg/dL (8.4-10.2); Carbon Dioxide 28 mmol/L (22-30); Chloride 106 mmol/L (98-107); Creatine Kinase 760 U/L (30-135); Estimated CRCL calculation 31 ml/min; Estimated Glomerular Filt Rate 37; Glucose 79 mg/dL (65-105); Potassium 4.1 mmol/L (3.4-5.0); Sodium 139 mmol/L (137-145)
[2019-09-01] MEDS: LEVOTHYROXINE SODIUM 75 MCG TABLET PO (06:32)
--- NOTE | 2019-09-01 13:49 | PM.DS ---
DS: Admitting Diagnosis Admitting Diagnosis Admitting Diagnosis: Acute kidney failure, unspecified DS: Discharge Diagnosis Discharge Diagnosis (1) MICK (acute kidney injury): Code(s): N17.9 - Acute kidney failure, unspecified Status: Acute (2) Rhabdomyolysis: Qualifiers: Rhabdomyolysis type: non-traumatic Qualified Code(s): M62.82 - Rhabdomyolysis Code(s): M62.82 - Rhabdomyolysis Status: Acute (3) Hypothyroidism: Code(s): E03.9 - Hypothyroidism, unspecified Status: Acute (4) Pancytopenia: Code(s): D61.818 - Other pancytopenia Status: Acute (5) Transaminitis: Code(s): R74.0 - Nonspecific elevation of levels of transaminase and lactic acid dehydrogenase [LDH] Status: Acute (6) Aortic stenosis: Code(s): I35.0 - Nonrheumatic aortic (valve) stenosis Status: Acute Assessment and Plan: The patient had a systolic murmur. Echocardiogram was performed and revealed moderate to severe aortic valve stenosis with a peak velocity of 283 cm/s, mean gradient of 18 mmHg, and aortic valve area of 1.2 cm2. Cardiology was consulted since she is not established with cardiology and will need follow-up echo monitoring. Appreciate cardiology recommendations. She will need TTE in 6 months and f/u with cardiology in clinic. DS: Summary Hospital Course Reason for hospitalization: Abnormal labs Hospital Course: Mrs. Thakkar is a 73 y.o. female with PMH significant for hypothyroidism, hx of renal cell carcinoma s/p left nephrectomy, and CKD stage III who presented to the emergency department for the evaluation of abnormal labs demonstrating MICK. She also reported weakness, fatigue, and swelling in the neck with hoarseness. She reported that she had not taken her levothyroxine for 6 months. Initial workup in the emergency department revealed WBC 2,500, Hb 9.5, Hct 28.2, platelets 133, sodium 137, potassium 4.1, chloride 102, CO2 28, BUN 20, Cr 2.0, glucose 80, TSH elevated at 11.4, free T4 low at 0.34, and creatine kinase elevated 2931. She was treated with IV fluids for rhabdomyolysis and admitted to the hospitalist service for further management. Her rhabdomyolysis was felt to be due to statin therapy and her statin was held. Her MICK improved with IV fluids. Her CK continued to decrease slowly with IV fluids. She was noted to have a pancytopenia so Dr. Canada with hematology/oncology was consulted. He recommended CT abd/pelvis to r/o spleen and liver pathology which revealed normal liver and non intra-axial hepatic biliary ductal dilation and diverticulosis without any other acute findings. He recommends bone marrow aspiration and biopsy outpatient and she was advised to call his office to have this scheduled. The patient had a systolic murmur. Echocardiogram was performed and revealed moderate to severe aortic valve stenosis with a peak velocity of 283 cm/s, mean gradient of 18 mmHg, and aortic valve area of 1.2 cm2. Cardiology was consulted since she is not established with cardiology. Per cardiology, she will need follow-up TTE in 6 months and f/u with cardiology in clinic. She felt much better and creatine kinase improved. She was discharged in stable condition on the afternoon of 09/01/19. She understand the follow-up recommendations and all additional questions were answered. She will need labs repeated in 5 days to check her LFTs and creatine kinase. Status at Discharge Functional status at discharge: independent ambulation Overall status at discharge: patient is back to baseline Time Spent with Patient Time attestation: Total time spent providing and/or coordinating discharge services: 35 minutes Exam Narrative: Exam Narrative: Vitals at presentation: Temp Pulse Resp BP Pulse Ox 97.6 F 74 19 142/89 H 98 08/26/19 12:59 08/26/19 12:59 07
--- NOTE | 2019-09-01 14:29 | PC.NURSE ---
Pt will no longer to be taking atorvastatin at this time and wanted us to dispose of her home medication bottle containing the pills. Spoke with Torey in pharmacy to clarify the disposal of the bottle of medication. Torey stated we can put it in our blue bin in the med room as long as we black out any pt information.
== END 2019-09-01 14:38 | disposition home or self-care (01) | DRG 558 ==
LOC: ANHED 17:34 → ANH3MED 18:59
PROVIDERS: Internal Medicine; Physician Assistant; Admitting Provider Family Medicine; Emergency Provider Emergency Medicine; Visit Provider Internal Medicine
DX: M62.82 Rhabdomyolysis (principal); N17.9 Acute kidney failure, unspecified; D61.818 Other pancytopenia; T46.6X5A Adverse effect of antihyperlipidemic and antiarteriosclerotic drugs, initial encounter; E03.9 Hypothyroidism, unspecified; R74.0 Nonspecific elevation of levels of transaminase and lactic acid dehydrogenase [LDH]; I35.0 Nonrheumatic aortic (valve) stenosis; N18.3 Chronic kidney disease, stage 3 (moderate); D63.1 Anemia in chronic kidney disease; E78.5 Hyperlipidemia, unspecified; R01.1 Cardiac murmur, unspecified; Z85.53 Personal history of malignant neoplasm of renal pelvis; Z90.5 Acquired absence of kidney; Z87.891 Personal history of nicotine dependence; Z90.710 Acquired absence of both cervix and uterus; Z90.49 Acquired absence of other specified parts of digestive tract
CPT/HCPCS: 36415; 74177; 80048; 80053; 80074; 81001; 82550; 82607; 82728; 82746; 83540; 83550; 83735; 84439; 84443; 84466; 85025; 85027; 85046; 85055; 93306; 96360; 96361; 99285; A9270; G0378; J1650; J7030; Q9967

== ENCOUNTER 2019-09-06 08:11 | Outpatient (CLI) | payer MEDICARE, SELFPAY ==
[2019-09-06 08:52] LABS: Hematocrit 30.7 % (37.0-47.0); Hemoglobin 10.1 g/dL (12.0-15.0); Mean Corpuscular HGB Conc 32.9 g/dl (32-36); Mean Corpuscular Hemoglobin 32.9 pg (26-34); Mean Platelet Volume 10.1 fl (7.4-10.4); Platelet Count Result 162 k/mm3 (150-375); Red Blood Count 3.07 M/mm3 (4.2-5.4); Red Cell Distribution Width 14.6 % (11.5-14.5)
[2019-09-06 09:05] LABS: Alanine Aminotransferase 45 U/L (4-35); Albumin Level 4.6 g/dL (3.5-5.1); Alkaline Phosphatase 69 U/L (38-126); Anion Gap 10.3 mmol/L (7-16); Aspartate Amino Transferase 53 U/L (14-36); Bilirubin,Total 0.6 mg/dL (0.2-1.3); Blood Urea Nitrogen 18 mg/dL (7-17); Calcium 9.4 mg/dL (8.4-10.2); Carbon Dioxide 30 mmol/L (22-30); Chloride 103 mmol/L (98-107); Creatine Kinase 758 U/L (30-135); Estimated Glomerular Filt Rate 34; Glucose 91 mg/dL (65-105); Potassium 4.3 mmol/L (3.4-5.0); Sodium 139 mmol/L (137-145)
== END 2019-09-06 08:12 | disposition home or self-care (01) ==
PROVIDERS: PCP Family Medicine; Visit Provider Physician Assistant
DX: M62.82 Rhabdomyolysis (principal); D61.818 Other pancytopenia
CPT/HCPCS: 36415; 80053; 82550; 85027